=== PATIENT | female | born 1930 | race Caucasian/White ===

== ENCOUNTER 2017-08-16 15:17 | Observation (INO) ==
--- NOTE | 2017-08-16 15:36 | Emergency Department Note ---
Disposition Clinical Impression: Chest pain Qualifiers: Chest pain type: unspecified Qualified Code(s): R07.9 - Chest pain, unspecified Disposition: Admitted As Inpatient Condition: Good Referrals: NONE,PCP [Primary Care Provider] - Forms: ED Satisfaction Letter Time of Disposition: 16:50 General Adult HPI - General Chief complaint: ED Chest Pain Stated complaint: CP Time Seen by Provider: 08/16/17 15:28 Source: patient Mode of arrival: ambulatory Limitations: no limitations Nursing Notes Reviewed: Yes Vital Signs Reviewed: Yes - History of Present Illness HPI Narrative: 87-year-old female who is a poor historian presenting to the emergency Department chief complaint of chest pain. She states this afternoon while washing the dishes [place] having right-sided chest pain that radiated up to her jaw. She states this has happened multiple times in the past and has normally resolved by itself. She was concerned when it did not resolve. She did not try anything at home. She has no significant past medical history. She denies taking any medications. She denies having any stents or stroke history. Patient is no longer having any pain at this time. She denies abdominal pain but does state she is chronically nauseous. Denies any urinary or bowel systems. Denies dizziness or passing out. Denies being on any anticoagulation. Pain Scale: 0 - Related Data Allergies Allergy/AdvReac Type Severity Reaction Status Date / Time No Known Allergies Allergy Verified 08/16/17 15:23 All systems ED: reviewed and negative except as stated. Constitutional: Denies: fever, chills Eyes: Reports: as per HPI ENT ED: Reports: as per HPI Cardiovascular: Reports: chest pain. Denies: palpitations, dyspnea on exertion Respiratory: Denies: cough, dyspnea, wheezes Gastrointestinal: Reports: nausea. Denies: abdominal pain, vomiting Genitourinary: Reports: as per HPI Musculoskeletal: Reports: as per HPI Integumentary: Reports: as per HPI Neurological: Denies: numbness, paresthesias Psychiatric: Reports: as per HPI Endocrine: Reports: as per HPI Hematological/Lymphatic: Reports: as per HPI Allergic/Immunologic: Reports: as per HPI Past Medical History - Past Medical History Attestation: Yes The following information was validated with the patient. Medical history: Reports: no medical history Psychiatric history: Reports: no psych history - Social History Smoking Status: Former smoker Smokeless Tobacco Status: No Alcohol use: Reports: none, rarely Drug use: Reports: none Physical Exam - General Limitations: no limitations General appearance: alert, in no apparent distress - Head Head exam: atraumatic, normocephalic, normal inspection - Eye Eye exam: Present: normal appearance. Absent: scleral icterus, conjunctival injection - Chest Chest inspection: Present: normal inspection, symmetric chest wall rise. Absent : tenderness, rash - Respiratory Respiratory exam: Present: normal lung sounds bilaterally. Absent: respiratory distress, wheezes, stridor - Cardiovascular Cardiovascular exam: Present: regular rate, normal rhythm, normal heart sounds - Abdominal Exam Abdominal exam: Present: soft, Non-Tender. Absent: distention, guarding, rebound - Extremities Exam Extremities exam: Present: normal inspection, other (Chronic left lower extremity weakness) - Neurological Exam Neurological exam: Present: alert, oriented X3 - Psychiatric Psychiatric exam: Present: normal affect, normal mood - Skin Skin exam: Present: warm, intact Course Course Narrative: 87-year-old female presents to the emergency department with chief complaint of chest pain. Patient denies any symptoms at this time. We will perform a chest pain rule out including CBC, EKG, troponin. Patient's alert and oriented 3 in the room it is a very poor historian. Son is at bedside and corroborates her story. Her vital signs are stable at this time. - Reevaluation(s) Reevaluation #1: Patient's BNP has come back mildly elevated at 346. All other labs are within normal limits. Due to the patient's heart score being greater than 3 would like to admit the patient at this time. Dr. Mcfarland hospitalist accepts the patient. Patient's alert and oriented 3 in the room with stable vital signs at this time. She agrees with this plan. Time: 16:50 Vital Signs Temperature 97.9 F 08/16/17 15:18 Pulse Rate 93 08/16/17 15:18 Respiratory Rate 16 08/16/17 15:18 Blood Pressure 153/87 08/16/17 15:18 O2 Sat by Pulse Oximetry 96 08/16/17 15:18 Temperature 97.9 F 08/16/17 15:18 Pulse Rate 50 08/16/17 16:19 Respiratory Rate 14 08/16/17 16:19 Blood Pressure 156/73 08/16/17 16:19 O2 Sat by Pulse Oximetry 98 08/16/17 16:19 Oxygen Delivery Oxygen Delivery Room Air Medical Decision Making - MDM Narrative Medical decision making narrative: I examined this patient and my medical decision-making was reviewed with the Resident Physician. I agree with the documented findings, disposition and treatment plan as described except to the extent set forth below. Patient seen and evaluated with ER resident, agree with her evaluation management plan and supervised the care of the patient to stay. Patient presents today with chest pain shooting she is pretty healthy pain syndrome about an hour to 2 hours. She does have some pain going up to her jaw. Her cardiac workup nitroglycerin and aspirin and then reassess she will most likely need admission. She is in agreement with this plan. She has no abdominal pain. Chest X-Ray 08/16/17 15:24 IMPRESSION: No acute abnormality detected. D/ / Cuco Lo MD / Cuco Lo MD Interpreting Provider: Cuco Lo MD 1643 hrs.: Patient remains pain-free labs look good. Chest x-rays negative overran for chest pain rule out ACS. - Lab Data Result diagrams: 08/16/17 15:53 08/16/17 15:53 Lab Results 08/16/17 08/16/17 08/16/17 Range/Units 15:53 15:53 15:53 WBC 6.7 (4.3-11.1) K/mcL RBC 4.82 (3.82-4.97) M/mcL Hgb 14.6 (11.5-15.4) g/dL Hct 44.9 (35.3-44.9) % MCV 93.2 (83.0-100.0) fL MCH 30.3 (28.0-33.3) pg MCHC 32.5 (31.6-35.5) g/dL RDW 12.8 (11.5-14.5) % Plt Count 165 (140-400) K/mcL MPV 10.4 (9.4-12.4) fL Immature Gran % 0.3 (0-4) % Seg Neutrophils % 70.7 % Lymphocytes % 20.4 % Monocytes % 7.2 % Eosinophils % 1.0 % Basophils % 0.4 % Neutrophils # 4.7 (1.6-8.9) K/mcL Lymphocytes # 1.4 (0.6-4.6) K/mcL Monocytes # 0.5 (0.0-1.3) K/mcL Eosinophils # 0.1 (0.0-0.6) K/mcL Basophils # 0.0 (0.0-0.2) K/mcL PT 10.9 (9.4-12.1) Seconds INR 1.0 Sodium (136-145) mEq/L Potassium (3.5-4.5) mEq/L Chloride (98-109) mEq/L Carbon Dioxide (19-29) mEq/L BUN (7-20) mg/dL Creatinine (0.57-1.11) mg/dL Est GFR ( Amer) (> 60) Est GFR (Non-Af Amer) (> 60) BUN/Creatinine Ratio (6-26) Glucose (70-99) mg/dL Calculated Osmolality (280-300) Calcium (8.6-10.8) mg/dL Total Bilirubin (0.2-1.2) mg/dL Direct Bilirubin (0.0-0.5) mg/dL Indirect Bilirubin (0.0-1.2) mg/dL AST (5-34) Units/L ALT (0-55) Units/L Alkaline Phosphatase (38-126) Units/L Troponin I (0-0.03) ng/mL B-Natriuretic Peptide 346 H (0-100) pg/mL Serum Total Protein (6.0-8.3) g/dL Albumin (3.5-5.0) g/dL Globulin (2.4-3.5) g/dL Albumin/Globulin Ratio (1.1-2.2) 08/16/17 08/16/17 Range/Units 15:53 15:53 WBC (4.3-11.1) K/mcL RBC (3.82-4.97) M/mcL Hgb (11.5-15.4) g/dL Hct (35.3-44.9) % MCV (83.0-100.0) fL MCH (28.0-33.3) pg MCHC (31.6-35.5) g/dL RDW (11.5-14.5) % Plt Count (140-400) K/mcL MPV (9.4-12.4) fL Immature Gran % (0-4) % Seg Neutrophils % % Lymphocytes % % Monocytes % % Eosinophils % % Basophils % % Neutrophils # (1.6-8.9) K/mcL Lymphocytes # (0.6-4.6) K/mcL Monocytes # (0.0-1.3) K/mcL Eosinophils # (0.0-0.6) K/mcL Basophils # (0.0-0.2) K/mcL PT (9.4-12.1) Seconds INR Sodium 143 (136-145) mEq/L Potassium 3.9 (3.5-4.5) mEq/L Chloride 105 (98-109) mEq/L Carbon Dioxide 29 (19-29) mEq/L BUN 10 (7-20) mg/dL Creatinine 0.88 (0.57-1.11) mg/dL Est GFR ( Amer) > 60 (> 60) Est GFR (Non-Af Amer) > 60 (> 60) BUN/Creatinine Ratio 11 (6-26) Glucose 90 (70-99) mg/dL Calculated Osmolality 295 (280-300) Calcium 9.8 (8.6-10.8) mg/dL Total Bilirubin 0.8 (0.2-1.2) mg/dL Direct Bilirubin 0.3 (0.0-0.5) mg/dL Indirect Bilirubin 0.5 (0.0-1.2) mg/dL AST 14 (5-34) Units/L ALT 6 (0-55) Units/L Alkaline Phosphatase 79 (38-126) Units/L Troponin I 0.00 (0-0.03) ng/mL B-Natriuretic Peptide (0-100) pg/mL Serum Total Protein 7.5 (6.0-8.3) g/dL Albumin 3.9 (3.5-5.0) g/dL Globulin 3.6 H (2.4-3.5) g/dL Albumin/Globulin Ratio 1.1 (1.1-2.2) - EKG Data EKG #1 EKG attestation: Yes I reviewed and interpreted this EKG. EKG results narrative: Sinus bradycardia. He 7 bpm. Normal axis. OK interval 143, QRS 82, QTc 413. No signs of ST segment elevation or ischemia. When compared to previous EKG completed on 04/26/2011 no significant changes noted
[2017-08-16] MEDS ORDERED: Aspirin 81 MG TAB.CHEW PO ONE (15:58)
[2017-08-16 16:05] LABS: Basophils % 0.4 %; Eosinophils # 0.1 K/mcL (0.0-0.6); Hematocrit 44.9 % (35.3-44.9); Hemoglobin 14.6 g/dL (11.5-15.4); Immature Granulocytes % 0.3 % (0-4); Lymphocytes # 1.4 K/mcL (0.6-4.6); Lymphocytes % 20.4 %; Mean Corpuscular HGB Conc 32.5 g/dL (31.6-35.5); Mean Corpuscular Hemoglobin 30.3 pg (28.0-33.3); Mean Corpuscular Volume 93.2 fL (83.0-100.0); Mean Platelet Volume 10.4 fL (9.4-12.4); Monocytes # 0.5 K/mcL (0.0-1.3); Monocytes % 7.2 %; Neutrophils # 4.7 K/mcL (1.6-8.9); Platelet Count 165 K/mcL (140-400); Red Blood Count 4.82 M/mcL (3.82-4.97); Red Cell Distribution Width 12.8 % (11.5-14.5); Segmented Neutrophils % 70.7 %
[2017-08-16 16:06] LABS: Prothrombin Time 10.9 Seconds (9.4-12.1)
[2017-08-16 16:23] LABS: Alanine Aminotransferase 6 Units/L (0-55); Albumin 3.9 g/dL (3.5-5.0); Albumin/Globulin Ratio 1.1 (1.1-2.2); Alkaline Phosphatase 79 Units/L (38-126); Aspartate Amino Transferase 14 Units/L (5-34); BUN/Creatinine Ratio 11 (6-26); Bilirubin,Direct 0.3 mg/dL (0.0-0.5); Bilirubin,Indirect 0.5 mg/dL (0.0-1.2); Bilirubin,Total 0.8 mg/dL (0.2-1.2); Blood Urea Nitrogen 10 mg/dL (7-20); Calcium 9.8 mg/dL (8.6-10.8); Carbon Dioxide 29 mEq/L (19-29); Chloride 105 mEq/L (98-109); Globulin 3.6 g/dL (2.4-3.5); Glucose 90 mg/dL (70-99); Osmolality,Calculated 295 (280-300); Potassium 3.9 mEq/L (3.5-4.5); Sodium 143 mEq/L (136-145); Total Protein 7.5 g/dL (6.0-8.3); eGFR For African Americans > 60 (> 60); eGFR For Non-African Americans > 60 (> 60)
[2017-08-16] MEDS ORDERED: Ibuprofen 600 MG TABLET PO ONE (17:06)
[2017-08-16] MEDS ORDERED: Naloxone 0.4 MG/ML INJ IVP PRN (20:46)
[2017-08-16] MEDS ORDERED: Acetaminophen 325 MG TABLET PO PRN (20:46)
[2017-08-16] MEDS ORDERED: *HR* Morphine 2 MG/ML SYRINGE IVP PRN (20:46)
[2017-08-16] MEDS ORDERED: *HR* HYDROcodone/Acet 5/325 mg TABLET PO PRN (20:46)
[2017-08-16] MEDS ORDERED: Nitroglycerin 0.4 MG TAB.SUBL SL PRN (20:48)
--- NOTE | 2017-08-16 20:49 | Internal Med History&Physical ---
Date of Encounter: 08/16/17 Time of Encounter: 21:50 Assessment and Plan (1) Chest pain Current visit: Yes Status: Acute Patient with significant risk factors including age, prior hx of smoking Chest pain is atypical Initial troponin negative, will cycle EKG with sinus bradycardia, continue tele Obtain ECHO. Slightly elevated BNP, no other evidence of fluid overload, renal function is acceptable, follow ECHO Stress test a.m NTG prn Check A1C and Lipid panel Continue ASA and Lipitor Qualifiers: Chest pain type: unspecified Qualified Code(s): R07.9 - Chest pain, unspecified Internal Medicine - H&P: HPI Chief complaint: Chest pain Admitted From: Home Plans for Post Hospital Care: Home History of present illness: Ms. Duke is a 87 year old female with osteoarthiritis, denies any other medical history, does not follow with any physician, resides at home with daughter Presents to the ER with complains of right sided chest pain which started while she was cooking, she reported chest pain started spontaneously on her Rt substernal region and radiated to her R jaw. It lasted till she presented to the ER, she reported associated nausea, denies SOB, denies diaphoresis or impending feeling of doom. She reports having prior similar symptoms but has never had any work up. This time, she presented because the pain did not go away. At time of review, she is chest pain free. The patient denies preceeding trauma, cough, fever or chills. No leg swelling, no decreased exercise tolerance. She reports chronic Left hip pain , and she ambulates with a walker, mostly independent at home, denies changes in bowel and urinary habits. She is a former smoker, family history is not contributory She takes no medications at home. Work up in the ER was unremarkable, EKG was sinus bradycardia, without any ST segment changes, troponin, CBC and chem unremarkable, BNP slightly elevated. CXR did not show any acute findings. Past Med Surg Social Fam HX - Past Medical History Medical history: arthritis Psychiatric history: no psych history - Social History Smoking Status: Former smoker Smokeless Tobacco Status: No Alcohol use: none Drug use: none - Family History Father Living Status: Hx Family Cardiac Disorders: Yes Internal Medicine - H&P: Meds No Known Home Drugs 08/16/17 [History] 3 Allergy/AdvReac Type Severity Reaction Status Date / Time No Known Allergies Allergy Verified 08/16/17 15:23 All Systems PM: A 10-system review of systems was performed and is negative for pertinent findings except as documented above in the HPI. - Constitutional Constitutional: no chills, no fever(s), no night sweats - EENT Eyes: no change in vision, no discharge, no pain, no photophobia Ears: no ear discharge, no ear pain, no tinnitus Nose, mouth and throat: no dysphagia, no nasal discharge, no neck pain, no sore throat - Cardiovascular Cardiovascular ROS IM: as per HPI, chest pain, no diaphoresis, no dyspnea, no lightheadedness, no palpitations, no syncope - Respiratory Respiratory: no cough, no dyspnea, no wheezing, no excessive phlegm production - Gastrointestinal Gastrointestinal: no abdominal pain, no diarrhea, no hematemesis, no hematochezia, no melena, no nausea, no vomiting - Genitourinary Genitourinary: no change in urinary stream, no dysuria, no flank pain, no hematuria - Musculoskeletal Musculoskeletal ROS IM: no numbness, no tingling - Integumentary Integumentary IM: no rash, no unusual bruising - Neurological Neurological ROS: no confusion, no convulsions, no focal weakness, no numbness, no tingling, no tremor(s) - Hematologic/Lymphatic Hematologic/Lymphatic: no easy bruising - Constitutional Vitals: Temp Pulse Resp BP Pulse Ox 98.1 F 55 16 139/62 93 08/16/17 18:41 08/16/17 18:41 08/16/17 18:41 08/16/17 18:41 08/16/17 18:41 General appearance: Present: cachectic, A&O X 3, pleasant, no acute distress - Head Head exam: Present: atraumatic, normocephalic - Eye Eye exam: Present: PERRL, conjuntiva pink, sclera anicteric Pupils: Present: PERRL - Neck Neck exam general surgery: Present: supple, trachea midline. Absent: lymphadenopathy - Respiratory Respiratory exam: Present: CTAB. Absent: accessory muscle use, rales, rhonchi, wheezes Additional comments: NO chest wall tenderness - Cardiovascular Cardiovascular exam: Present: RRR, +S1, +S2. Absent: diastolic murmur, gallop, rubs, systolic murmur - GI/Abdominal GI/Abdominal exam: Present: normal bowel sounds, soft, no peritoneal signs. Absent: distended, tenderness - Extremities Exam Extremities exam: Present: warm, radial pulses palpable and symmetrical. Absent : calf tenderness, cyanotic, pedal edema - Neurological Exam Neurological exam: Present: alert, CN II-XII intact, oriented X3, no focal deficits. Absent: pronater drift, facial droop, speech deficit - Skin Skin exam: Present: dry, intact Internal Med - H&P Results - Labs CBC & Chem 7: 08/16/17 15:53 08/16/17 15:53
[2017-08-17 04:44] LABS: Basophils % 0.4 %; Eosinophils # 0.1 K/mcL (0.0-0.6); Hematocrit 37.4 % (35.3-44.9); Hemoglobin A1C 4.8 %; Immature Granulocytes % 0.2 % (0-4); Lymphocytes # 1.8 K/mcL (0.6-4.6); Lymphocytes % 32.1 %; Mean Corpuscular HGB Conc 32.1 g/dL (31.6-35.5); Mean Corpuscular Hemoglobin 29.9 pg (28.0-33.3); Mean Platelet Volume 10.8 fL (9.4-12.4); Monocytes # 0.6 K/mcL (0.0-1.3); Monocytes % 10.4 %; Platelet Count 148 K/mcL (140-400); Red Blood Count 4.02 M/mcL (3.82-4.97); Red Cell Distribution Width 12.8 % (11.5-14.5); Segmented Neutrophils % 54.9 %
[2017-08-17 04:47] LABS: BUN/Creatinine Ratio 18 (6-26); Blood Urea Nitrogen 15 mg/dL (7-20); Calcium 8.6 mg/dL (8.6-10.8); Carbon Dioxide 29 mEq/L (19-29); Chloride 108 mEq/L (98-109); Glucose 95 mg/dL (70-99); Osmolality,Calculated 297 (280-300); Potassium 3.8 mEq/L (3.5-4.5); Sodium 143 mEq/L (136-145); eGFR For African Americans > 60 (> 60); eGFR For Non-African Americans > 60 (> 60)
[2017-08-17 04:52] LABS: Chol/HDL Ratio 3.7 (0-4.9)
[2017-08-17] MEDS ORDERED: Regadenoson 0.4 MG/5 ML SYRINGE IVP ONE (06:17)
[2017-08-17] MEDS: Aspirin Enteric Coated 81 MG Tablet PO SCH (09:27)
[2017-08-17 12:49] LABS: Bilirubin,Urine Negative (Negative); Blood,Urine Negative (Negative); Clarity,Urine Clear (Clear); Color,Urine Yellow (Yellow); Glucose,Urine (UA) Normal (Normal); Ketones,Urine Negative (Negative); Leukocyte Esterase,Urine Small (Negative); Nitrite,Urine Positive (Negative); PH,Urine 6.5 pH Units (5.0-8.0); Protein,Urine Negative (Neg-Trace); Specific Gravity,Urine 1.011 (1.010-1.025); Urobilinogen,Urine Normal (Normal)
[2017-08-17 12:53] LABS: Bacteria,Urine Many per hpf (None-Few); Hyaline Casts,Urine None Seen per lpf (None-Few); RBC,Urine 0-3 per hpf (0-3); Squamous Epithelial Cell,Urine Moderate per lpf (None-Few); WBC,Urine 0-3 per hpf (0-3)
--- NOTE | 2017-08-17 13:46 | Discharge Summary ---
Date of Encounter: 08/17/17 Time of Encounter: 13:42 - Discharge Diagnosis (1) UTI (urinary tract infection) Priority: Primary Status: Acute Comments: Bianca Duke is a 87-year-old female with no significant past medical history who presented to [facility] on 08/16/2017 with complaints of chest pain for 1 month. She is placed in observation status for further workup and treatment. She was discharged home on 08/17/2017 in stable condition with outpatient follow-up. 1. Chest pain: Patient reports intermittent chest pain for 1 month prior to presentation. Serial troponin negative. EKG without acute ST changes. Nuclear stress test negative for ischemia or infarct. Suspect musculoskeletal etiology given duration of symptoms and chest pain is reproducible on exam. Echo pending. 2. UTI: UA indicative of UTI. Start ceftriaxone. Urine culture pending. Qualifiers: Urinary tract infection type: acute cystitis Hematuria presence: without hematuria Qualified Code(s): N30.00 - Acute cystitis without hematuria (2) Chest pain Priority: Primary Status: Acute Qualifiers: Chest pain type: unspecified Qualified Code(s): R07.9 - Chest pain, unspecified - Discharge Medications Home Medications: No Known Home Drugs 08/16/17 [History] Allergies/Adverse Reactions: 3 Allergy/AdvReac Type Severity Reaction Status Date / Time No Known Allergies Allergy Verified 08/16/17 15:23 Procedures/tests Complete & Pending: Procedures Performed prior 72 hours Category Date Time Status NM erick perf SPECT multi [NM] Routine Exams 08/16/17 20:48 Taken EV echocardiogram Routine Y 08/17/17 08:30 Completed SP pharm nuclear stress Routine Y 08/16/17 20:47 Completed Date of admission: 08/16/17 16:58 Primary care physician: PCP NONE Discharging clinician: Jazmine Gonzales Anticipated date of discharge: 08/17/17 - Patient Status Disposition: Home, Self-Care Condition: Good Functional capacity at discharge: uses cane/walker Overall status at discharge: patient is progressing back to baseline - Discharge Instructions Follow Up With: NONE,PCP [Primary Care Provider] - - Diet and Activity Activity: ambulate only with your walker Diet: advance to your usual diet Interval History: Patient is neatly. Information obtained from chart review and patient report. Seen and examined at bedside, sitting up eating breakfast. No distress apparent. She reports intermittent chest pain for the last month. Says chest pain as sharp, dull at times. Chest pain occurs with activity and while rest. She reports right-sided chest pain that radiated to her jaw yesterday that is why she came to the hospital. No chest pain on my exam. No shortness of breath. Hospital course: Ms. Duke is a 87 year old female - Time Spent with Patient Total time spent providing and/or coordinating discharge services: - Constitutional Vitals: Temp Pulse Resp BP Pulse Ox 97.8 F 54 16 118/66 97 08/17/17 03:00 08/17/17 03:00 08/17/17 03:00 08/17/17 03:00 08/17/17 03:00 General appearance: Present: cachectic, A&O X 3, pleasant, no acute distress - Head Head exam: Present: atraumatic, normocephalic - Eye Eye exam: Present: PERRL, conjuntiva pink, sclera anicteric Pupils: Present: PERRL - Neck Neck exam general surgery: Present: supple, trachea midline. Absent: lymphadenopathy - Respiratory Respiratory exam: Present: CTAB. Absent: accessory muscle use, rales, rhonchi, wheezes - Cardiovascular Cardiovascular exam: Present: RRR, +S1, +S2. Absent: diastolic murmur, gallop, rubs, systolic murmur - GI/Abdominal GI/Abdominal exam: Present: normal bowel sounds, soft, no peritoneal signs. Absent: distended, tenderness - Extremities Exam Extremities exam: Present: warm, radial pulses palpable and symmetrical. Absent : calf tenderness, cyanotic, pedal edema - Neurological Exam Neurological exam: Present: CN II-XII intact, oriented X3, no focal deficits. Absent: pronater drift, facial droop, speech deficit - Skin Skin exam: Present: dry, intact
[2017-08-17] MEDS: cefTRIAXone 1,000 MG in Water for inj. (sterile) 10 ML IVP SCH (15:09)
--- NOTE | 2017-08-17 17:48 | Electrocardiograph Report ---
[place] [id number] Test Date: 2017-08-16 Pat Name: Bianca Duke Department: 103 Room: 3B Gender: F Asp Web Developer: IFTIKHAR : 1930 Requested By: Raleigh Rodriguez Order Number: [id number] Reading MD: Stewart Hurst MD Measurements Intervals [place] Rate: 57 P: 32 WA: 143 QRS: 7 QRSD: 82 T: 8 QT: 418 QTc: 413 Interpretive Statements SINUS BRADYCARDIA Electronically Signed On 08-17-2017 17:47:17 EST by Stewart Hurst MD
[2017-08-18 07:38] VITALS: BP 158/79
[2017-08-18] MEDS: Aspirin Enteric Coated 81 MG Tablet PO SCH (08:12)
--- NOTE | 2017-08-18 12:46 | Discharge Summary ---
Date of Encounter: 08/18/17 Time of Encounter: 12:43 - Discharge Diagnosis (1) UTI (urinary tract infection) Priority: Primary Status: Acute Comments: Bianca Gary is a 87 y/o female with no significant PMH who presented to [facility] on 08/16/2017 with complaints of chest pain. She was placed in observation status for ACS rule out. 1. Chest pain: reported intermittent chest pain for 1 month prior to presentation. No hx CAD. EKG without acute ST changes, serial troponin negative. TTE with EF 60%, mild diastolic dysfunction and mild aortic, mitral, tricuspid and pulmonic regurgitation. Exercise nuclear stress test negative for ischemia or infarct. No chest pain recurrence while inpatient. Do not suspect ACS as chest pain was intermittently reproducible on exam. Continue ASA , recommend outpatient follow-up with Cardiology. 2. Abnormal UA: UA indicative of UTI. Received 2 doses IV ceftriaxone. De- escalate ATB to Macrobid at discharge. Follow urine culture, change ATB if needed 3. Hyperlipidemia: LDL 109, statin initiated 4. Hypertension: no previous hx. With SBPs in 150s-170s while inpatient. Low dose amlodipine initiated. Recommend follow-up with PCP within one week for BP recheck 5. Bradycardia: Heart rate intermittently and 50s, asymptomatic. Not on greg blocking agents. TTE as noted above. Patient advised to monitor BP and heart rate at home. Can follow-up with cardiology and/or PCP outpatient. Qualifiers: Urinary tract infection type: acute cystitis Hematuria presence: without hematuria Qualified Code(s): N30.00 - Acute cystitis without hematuria (2) Chest pain Priority: Primary Status: Resolved Qualifiers: Chest pain type: unspecified Qualified Code(s): R07.9 - Chest pain, unspecified (3) Essential hypertension Priority: Primary Status: Acute (4) Hyperlipidemia Priority: Primary Status: Acute Qualifiers: Hyperlipidemia type: pure hypercholesterolemia Qualified Code(s): E78.00 - Pure hypercholesterolemia, unspecified; E78.0 - Pure hypercholesterolemia - Discharge Medications Prescriptions: amLODIPine [Norvasc] 5 mg PO DAILY #30 tablet Aspirin Enteric Coated [Aspirin EC] 81 mg PO DAILY #30 tablet. Atorvastatin [Lipitor] 40 mg PO HS #30 tablet Nitrofurantoin Monohyd/M-Cryst [Macrobid 100 mg Capsule] 100 mg PO BID #14 capsule Home Medications: Aspirin Enteric Coated [Aspirin EC] 81 mg PO DAILY #30 tablet. 08/18/17 [Rx] Atorvastatin [Lipitor] 40 mg PO HS #30 tablet 08/18/17 [Rx] Nitrofurantoin Monohyd/M-Cryst [Macrobid 100 mg Capsule] 100 mg PO BID #14 capsule 08/18/17 [Rx] amLODIPine [Norvasc] 5 mg PO DAILY #30 tablet 08/18/17 [Rx] Allergies/Adverse Reactions: 3 Allergy/AdvReac Type Severity Reaction Status Date / Time diphenhydramine Allergy Drowsy Verified 08/17/17 17:35 [From Benadryl] promethazine [From Phenergan] Allergy Drowsy Verified 08/17/17 17:36 Procedures/tests Complete & Pending: Procedures Performed prior 72 hours Category Date Time Status NM erick perf SPECT multi [NM] Routine Exams 08/16/17 20:48 Taken EV echocardiogram Routine Y 08/17/17 08:30 Completed SP pharm nuclear stress Routine Y 08/16/17 20:47 Completed Date of admission: 08/16/17 16:58 Primary care physician: PCP NONE Discharging clinician: Jazmine Gonzales Anticipated date of discharge: 08/18/17 - Patient Status Disposition: Home, Self-Care Condition: Good Functional capacity at discharge: uses cane/walker Overall status at discharge: patient is back to baseline - Discharge Instructions Instructions: Chest Pain (DC), Urinary Tract Infection in Women (DC), Aspirin ( By mouth), Amlodipine (By mouth), Nitrofurantoin Combination (By mouth), Atorvastatin (By mouth) Follow Up With: NONE,PCP [Primary Care Provider] - Additional Instructions: Please follow-up with your family care physician as scheduled. Please follow up with cardiology as scheduled. Return to ER if chest pain and/or shortness of breath recurs. - Diet and Activity Activity: increase activity as tolerated Diet: low fat, low cholesterol Interval History: Seen and examined at bedside. Patient says she feels better and would like to go home today. No chest pain recurrence. Denies shortness of breath. We discussed inpatient versus outpatient cardiology follow-up and patient prefers to follow-up with cardiology on an outpatient basis. Advised patient that she will be sent home on a new blood pressure medication, education for cholesterol , aspirin and antibiotic for UTI. Patient verbalized understanding. Hospital course: Ms. Duke is a 87 year old female - Time Spent with Patient Total time spent providing and/or coordinating discharge services: - Constitutional Vitals: Temp Pulse Resp BP Pulse Ox 97.7 F 92 18 158/79 93 08/18/17 11:19 08/18/17 11:19 08/18/17 11:19 08/18/17 07:37 08/18/17 11:19 General appearance: Present: A&O X 3, pleasant, no acute distress - Head Head exam: Present: atraumatic, normocephalic - Eye Eye exam: Present: PERRL, conjuntiva pink, sclera anicteric Pupils: Present: PERRL - Neck Neck exam general surgery: Present: supple, trachea midline. Absent: lymphadenopathy - Respiratory Respiratory exam: Present: CTAB. Absent: accessory muscle use, rales, rhonchi, wheezes - Cardiovascular Cardiovascular exam: Present: RRR, +S1, +S2. Absent: diastolic murmur, gallop, rubs, systolic murmur - GI/Abdominal GI/Abdominal exam: Present: normal bowel sounds, soft, no peritoneal signs. Absent: distended, tenderness - Extremities Exam Extremities exam: Present: warm, radial pulses palpable and symmetrical. Absent : calf tenderness, cyanotic, pedal edema - Neurological Exam Neurological exam: Present: CN II-XII intact, oriented X3, no focal deficits. Absent: pronater drift, facial droop, speech deficit - Skin Skin exam: Present: dry, intact
[2017-08-18] MEDS: cefTRIAXone 1,000 MG in Water for inj. (sterile) 10 ML IVP SCH (15:09)
== END 2017-08-18 17:49 | disposition home or self-care (01) ==
LOC: 3BNU 15:17 → EMEROO 15:17 → 3BNU 17:52
PROVIDERS: ADMIT Internal Medicine; ATTEND Registered Nurse